=== PATIENT | female | born 1975 | race Caucasian/White ===

== ENCOUNTER 2018-03-14 08:56 | Inpatient (IN) ==
[2018-03-14] MEDS ORDERED: Dexamethasone 4 MG/ML VIAL ONE (09:01)
[2018-03-14] MEDS ORDERED: Lidocaine -MPF 2% 2 ML VIAL ONE (09:01)
[2018-03-14] MEDS ORDERED: Ondansetron 4 MG/2 ML VIAL ONE (09:01)
[2018-03-14] MEDS ORDERED: *HR* Succinylcholine 200 MG/10 ML VIAL IVP ONE (09:01)
[2018-03-14] MEDS ORDERED: *HR* Propofol 200 MG/20 ML VIAL IVP ONE (09:01)
[2018-03-14] MEDS ORDERED: *HR* FentaNYL (PF) 100 MCG/2 ML VIAL ONE (09:01)
--- NOTE | 2018-03-14 09:06 | Anesthesia Evaluation PreOp ---
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: Other (low back pain) Other Medical History: Renal (kidney stones), GERD, Other (obesity BMI=43.9, fibromyalgia, anxiety/depression) Anesthesia History: Past Anesthesia, Problems (PONV) Test: Negative (03/09/2018) Alcohol Use: none Drug use: none Medications and Allergies Acetaminophen [Tylenol] 1,000 mg PO Q6HR PRN 12/21/17 [History] Aspirin Enteric Coated [Aspirin EC] 81 mg PO DAILY 12/21/17 [History] BuPROPion XL (24 HR) [Wellbutrin XL] 150 mg PO DAILY 12/21/17 [History] Buspirone HCl [Buspar] 10 mg PO TID 12/21/17 [History] Cyclobenzaprine [Flexeril] 10 mg PO HS PRN 12/21/17 [History] Duloxetine HCl [Cymbalta] 60 mg PO DAILY 12/21/17 [History] Fluticasone Propionate Nasal [Flonase] 50 mcg NS DAILY 12/21/17 [History] Gabapentin [Neurontin] 800 mg PO TID 12/21/17 [History] HYDROcodone/Acet 10/325 mg [[place] 10-325 mg] 1 tab PO TID PRN 12/21/17 [History] Ibuprofen [Ibu] 800 mg PO TID PRN 12/21/17 [History] Ibuprofen [Motrin] 600 mg PO Q6HR PRN #60 tab 12/21/17 [Rx] Metoprolol Succinate [Toprol Xl] 100 mg PO HS 12/21/17 [History] Ranitidine HCl [Zantac 75] 150 mg PO DAILY 12/21/17 [History] Allergy/AdvReac Type Severity Reaction Status Date / Time cephalexin [From Keflex] Allergy Gastrointestinal Verified 03/09/18 13:19 Upset hydrochlorothiazide AdvReac Dizziness Verified 03/09/18 13:19 [From Zestoretic] lisinopril [From Zestoretic] AdvReac Dizziness Verified 03/09/18 13:19 - Meds/Allergy Pre-op Review Medications Reviewed: Yes Allergies Reviewed: Yes Beta Blockers on Current Med List: Yes If Beta Blockers taken, Date/Time (Last Dose taken): 03/13/2018 at 1900 Anesthesia Results - Labs Laboratory Tests 03/09/18 03/09/18 03/09/18 14:01 14:01 14:01 WBC Hgb Hct Plt Count PT 11.2 INR 1.0 APTT 34.5 Sodium 136 Potassium 4.0 BUN 12 Creatinine 0.76 Serum , Qual Negative 03/09/18 14:01 WBC 7.7 Hgb 13.3 Hct 40.3 Plt Count 190 PT INR APTT Sodium Potassium BUN Creatinine Serum , Qual - Imaging EKG: report reviewed (12/15/2017 SINUS RHYTHM) Anesthesia Exam O2 Sat Height 1.6 m Height 1.6 m Weight 112.491 kg Weight 112.491 kg O2 Sat by Pulse Oximetry 96 Vital Signs Temp Pulse Resp BP Pulse Ox 97.6 F 75 18 128/79 96 03/14/18 09:09 03/14/18 09:09 03/14/18 09:09 03/14/18 09:09 03/14/18 09:09 Height: 5'3'' Weight: 248 lbs NPO (# of Hours): 8 Pain Scale: 0 Pain Scale Used: Numeric (1 - 10) - HEENT Pupil (Motor): EOMI Mallampati: II Teeth: Normal, Missing Oral Opening: Greater than 3 - HAND COOPER HELPER LOC: Oriented HAND COOPER HELPER Motor: Normal RUE, Normal LUE, Normal RLE, Normal LLE, Normal Face HAND COOPER HELPER Sensory: Normal: RUE, LUE, RLE, LLE, Face - Cardiac Rhythm: Regular Murmur: None - Pulmonary Breath Sounds: bilateral Clear Respiratory Effort: Symmetrical Anesthesia Assess/Plan ASA Score: 3 Level of consciousness: Cooperative, Oriented, Tranquil Anesthetic Plan: General Monitoring Plan: Standard Monitors Recovery Plan: PACU
[2018-03-14] MEDS ORDERED: Clindamycin 900 MG/50 ML 900 MG/50 ML IV.SOLN IVPB ONE (09:13)
[2018-03-14] MEDS ORDERED: Ringers Solution, Lactated 1,000 ML IVC SCH (09:15)
[2018-03-14] MEDS ORDERED: Gentamicin 380 MG in 0.9 % Sodium Chloride 100 ML IVPB ONE (09:33)
[2018-03-14] MEDS ORDERED: Scopolamine Patch 1.5 MG PATCH.TD72 TD ONE (09:34)
[2018-03-14] MEDS ORDERED: Scopolamine Patch 1.5 MG PATCH.TD72 ONE (09:37)
--- NOTE | 2018-03-14 09:39 | History & Physical Report ---
Date of Encounter: 03/14/18 Time of Encounter: 09:38 24 Hour HP Update - Instructions Instructions: If the History and Physical is less than 30 days old and was completed prior to A.M. admission and or procedure and has NOT been updated on calendar day of procedure please complete this update prior to performing procedure. - Update Patient reports changes in Medical Condition: No Changes in examination, assessment, or condition: No Changes in Medication: No Preop tests/diagnostics Reviewed: Yes Surgery Remains Indicated: Yes Consent for Planned Operative Procedure(s) Verified: Yes - Pre-Operative Checklist Preoperative Checklist Indicated: Yes Prophylactic Antibiotic Ordered: Yes Home Medications Include Beta Heber: No Beta Heber Taken Today (Day of Surgery): No Beta Heber Taken Yesterday (Day Prior to Surgery): No Is VTE Prophylaxis Indicated?: Yes
[2018-03-14] MEDS ORDERED: Acetaminophen IV 1,000 MG/100 ML INFUS..BTL ONE (10:43)
[2018-03-14] MEDS ORDERED: *HR* Morphine 10 MG/ML VIAL ONE (10:57)
[2018-03-14] MEDS ORDERED: *HR* Vasopressin 20 UNIT/ML VIAL ONE (11:19)
[2018-03-14] MEDS ORDERED: *HR* Midazolam HCl 2 MG/2 ML VIAL ONE (11:26)
[2018-03-14] MEDS ORDERED: Albumin Human 5% 25.0 GM/500 ML VIAL ONE (12:16)
--- NOTE | 2018-03-14 13:37 | OB/GYN Procedure Note ---
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 - Diagnosis Date of procedure: 03/14/18 Pre-op diagnosis: Fibroid uterus, AUB, dysmenorrhea, pelvic pain Post-op diagnosis: same - Procedure Procedure: JOEL, b/l salpingectomy Surgeon: Perico Irwin Was there an dietitian assistant present: Yes [employer] Official: Suzie Blankenship Anesthesia Type: General Estimated blood loss (cc): 1,100 Fluids: crystalloid Procedure Complications: none Specimens collected: fibroid uterus, cervix and tubes Disposition: floor Findings: very large fibroid uterus, normal ovaries and tubes Narrative: The patient was prepped and draped in the usual sterile fashion. A pfannensteil incision was made into the abdomen down through the subcutaneous tissue, muscular fascia and peritoneum. Once inside the abdominal cavity, the fibroid uterus was noted and I placed a hand into the pelvic cavity to elevate the fibroid. Initially it was hard to elevate because part of the fibroid was wedged in the pelvis so I performed a Maylard incision on both sides after which I was able to elevate the uterus. A bladder retractor was placed. The uterus was grasped on the fundus with a double-toothed tenaculum with upward traction. The round ligaments on either side were identified and individually dissected and ligated with the Ligasure device. This allowed me to create a bladder flap by both blunt and sharp dissection. The fallopian tube and ovarian ligament were isolated through the broad ligament from the uterine body and ligated with the Ligasure divided as well. We noted multiple dilated blood vessels supplying the fibroid so there was a lot of suture ligation of bleeding vessels as soon as the procedure commenced. I called for 10 U of Vasopressin in 10cc of saline and injected into the muscle of the uterus. We noticed considerable lessening of the bleeding. I then skeletonized the uterine vessels on either side and carefully dissected the bladder flap anteriorly. Posteriorly, the peritoneum was dissected down toward the uterosacral ligaments. Ashanti clamps were then placed at each isthmic portion of the cervical body junction where the uterine arteries adjoined the uterus. These were clamped, ligated and divided using #0 Vicryl suture. The remainder of the uterus was then removed by the [id number] technique using #0 Vicryl on all major pedicles (I performed a supra cervical hysterectomy first before removing the cervix to allow for adequate visualization). With removal of the uterus and cervix, the vaginal cuff was closed in the usual manner. Hemostasis was then inspected and secured throughout the entire area. The ovaries were left in situ. The lap sponges were then removed and the retractor was removed. She was given methylene blue which was visible through the jordan into the bag. The patient tolerated the operation nicely. There were no complications associated with this surgical procedure to this point. The sponge count was correct times 2 at this time. The Jordan catheter was inspected and blue stained urine was noted. Having removed all instruments and packs, we then began closure of the abdomen. The fascia was closed with #0 PDS in a running continuous manner and the subcutaneous tissue was also closed with #3-0 vicryl in multiple layers after subcutaneous irrigation. The skin was closed with #4-0 vicryl. The patient tolerated the operation nicely and was then taken to the Recovery Room in good condition.
[2018-03-14] MEDS ORDERED: *HR* Promethazine 25 MG/ML VIAL IM ONE (13:46)
[2018-03-14] MEDS ORDERED: Ondansetron 4 MG/2 ML VIAL IVP ONE (13:47)
[2018-03-14] MEDS ORDERED: *HR* Morphine 2 MG/ML SYRINGE IVP PRN (13:48)
[2018-03-14] MEDS ORDERED: *HR* Promethazine 25 MG/ML VIAL IV ONE (14:15)
--- NOTE | 2018-03-14 14:17 | Anesthesia Evaluation Post Op ---
Date of Encounter: 03/14/18 Time of Encounter: 14:15 - Vital Signs Vital Signs: Selected Entries 03/14/18 14:00 Temperature 97.2 F L Pulse Rate 91 Respiratory Rate 12 Blood Pressure 122/77 O2 Sat by Pulse Oximetry 96 - Lungs Lungs: Clear Ascult./Percussion - Airway Airway: Non-obstructed - Cardiovascular Regular Rate - Mental Status Mental Status: Alert & Oriented, Answers Appropriately - Nausea Vomiting Nausea Vomiting: Responds to treatment with IV Meds - Hydration Hydration: NPO - Discharge PostOp Status: Transfer Patient to floor
[2018-03-14] MEDS ORDERED: *HR* OxyCODONE/APAP 5/325 TABLET PO PRN (15:09)
[2018-03-14] MEDS ORDERED: Naloxone 0.4 MG/ML INJ IVP PRN (15:09)
[2018-03-14] MEDS ORDERED: Ondansetron 4 MG/2 ML VIAL IVP PRN (15:09)
[2018-03-14 16:29] LABS: Basophils % 0.1 %; Hematocrit 31.9 % (35.3-44.9); Immature Granulocytes % 0.4 % (0-4); Lymphocytes # 0.7 K/mcL (0.6-4.6); Lymphocytes % 5.2 %; Mean Corpuscular HGB Conc 32.9 g/dL (31.6-35.5); Mean Corpuscular Hemoglobin 28.8 pg (28.0-33.3); Mean Corpuscular Volume 87.4 fL (83.0-100.0); Mean Platelet Volume 9.9 fL (9.4-12.4); Monocytes # 0.6 K/mcL (0.0-1.3); Monocytes % 4.1 %; Neutrophils # 12.2 K/mcL (1.6-8.9); Platelet Count 165 K/mcL (140-400); Red Blood Count 3.65 M/mcL (3.82-4.97); Segmented Neutrophils % 90.2 %
[2018-03-14 16:30] LABS: Hemoglobin 10.5 g/dL (11.5-15.4)
[2018-03-14] MEDS: Gabapentin 400 MG CAPSULE PO SCH ×2 (16:58→20:11)
[2018-03-14] MEDS: Ringers Solution, Lactated 1,000 ML IVC SCH (19:36)
[2018-03-14] MEDS: Ibuprofen 600 MG TABLET PO PRN (20:09)
[2018-03-14] MEDS ORDERED: Metoprolol XL (24 HR) Succ 50 MG TAB.ER.24H PO SCH (21:00)
[2018-03-15] MEDS: Ibuprofen 600 MG TABLET PO PRN ×2 (04:04→16:06)
[2018-03-15] MEDS: Ringers Solution, Lactated 1,000 ML IVC SCH (04:05)
[2018-03-15 06:52] LABS: Basophils % 0.1 %; Eosinophils % 0.1 %; Hematocrit 27.7 % (35.3-44.9); Hemoglobin 9.1 g/dL (11.5-15.4); Immature Granulocytes % 0.4 % (0-4); Lymphocytes # 1.6 K/mcL (0.6-4.6); Lymphocytes % 14.6 %; Mean Corpuscular HGB Conc 32.9 g/dL (31.6-35.5); Mean Corpuscular Hemoglobin 28.9 pg (28.0-33.3); Mean Corpuscular Volume 87.9 fL (83.0-100.0); Mean Platelet Volume 10.2 fL (9.4-12.4); Monocytes # 0.8 K/mcL (0.0-1.3); Monocytes % 6.7 %; Neutrophils # 8.7 K/mcL (1.6-8.9); Platelet Count 185 K/mcL (140-400); Red Blood Count 3.15 M/mcL (3.82-4.97); Red Cell Distribution Width 13.1 % (11.5-14.5); Segmented Neutrophils % 78.1 %
[2018-03-15] MEDS: Gabapentin 400 MG CAPSULE PO SCH (08:56)
[2018-03-15] MEDS ORDERED: Famotidine 20 MG TABLET PO SCH (09:00)
[2018-03-15] MEDS ORDERED: BuPROPion XL (24 HR) 150 MG TABLET PO SCH (09:00)
[2018-03-15 11:34] VITALS: BP 90/42
--- NOTE | 2018-03-15 16:08 | Discharge Summary ---
Date of Encounter: 03/15/18 Time of Encounter: 16:06 - Discharge Diagnosis (1) Status post hysterectomy Priority: Primary Status: Acute Comments: 42 y/o s/p JOEL for fibroid uterus, POD#1 patient is doing well, she is ambulating, tolerating PO, passing good urine output, pain is under control - Discharge Medications Home Medications: Aspirin Enteric Coated [Aspirin EC] 81 mg PO DAILY 12/21/17 [History] BuPROPion XL (24 HR) [Wellbutrin XL] 150 mg PO DAILY 12/21/17 [History] Buspirone HCl [Buspar] 10 mg PO TID 12/21/17 [History] Cyclobenzaprine [Flexeril] 10 mg PO HS PRN 12/21/17 [History] Duloxetine HCl [Cymbalta] 60 mg PO HS 12/21/17 [History] Fluticasone Propionate Nasal [Flonase] 50 mcg NS HS 12/21/17 [History] Gabapentin [Neurontin] 800 mg PO TID 12/21/17 [History] HYDROcodone/Acet 10/325 mg [[place] 10-325 mg] 1 tab PO TID PRN 12/21/17 [History] Metoprolol Succinate [Toprol Xl] 100 mg PO HS 12/21/17 [History] Ranitidine HCl [Zantac 75] 150 mg PO DAILY 12/21/17 [History] Furosemide [Lasix] 20 mg PO DAILY 03/14/18 [History] Ibuprofen [Ibu] 800 mg PO TID 03/14/18 [History] Allergies/Adverse Reactions: Allergy/AdvReac Type Severity Reaction Status Date / Time cephalexin [From Keflex] Allergy Gastrointestinal Verified 03/14/18 10:08 Upset hydrochlorothiazide AdvReac Dizziness Verified 03/14/18 10:08 [From Zestoretic] lisinopril [From Zestoretic] AdvReac Dizziness Verified 03/14/18 10:08 Data Procedures and tests throughout hospitalization: Laboratory Tests 03/14/18 03/15/18 16:18 06:30 WBC 13.5 H D 11.2 H RBC 3.65 L 3.15 L Hgb 10.5 L D 9.1 L Hct 31.9 L 27.7 L MCV 87.4 87.9 MCH 28.8 28.9 MCHC 32.9 32.9 RDW 13.0 13.1 Plt Count 165 185 MPV 9.9 10.2 Immature Gran % 0.4 0.4 Seg Neutrophils % 90.2 78.1 Lymphocytes % 5.2 14.6 Monocytes % 4.1 6.7 Eosinophils % 0.0 0.1 Basophils % 0.1 0.1 Neutrophils # 12.2 H 8.7 Lymphocytes # 0.7 1.6 Monocytes # 0.6 0.8 Eosinophils # 0.0 0.0 Basophils # 0.0 0.0 Labs on day of discharge: Labs from last 24 hours 03/15/18 03/14/18 06:30 16:18 WBC 11.2 H 13.5 H D RBC 3.15 L 3.65 L Hgb 9.1 L 10.5 L D Hct 27.7 L 31.9 L MCV 87.9 87.4 MCH 28.9 28.8 MCHC 32.9 32.9 RDW 13.1 13.0 Plt Count 185 165 MPV 10.2 9.9 Immature Gran % 0.4 0.4 Seg Neutrophils % 78.1 90.2 Lymphocytes % 14.6 5.2 Monocytes % 6.7 4.1 Eosinophils % 0.1 0.0 Basophils % 0.1 0.1 Neutrophils # 8.7 12.2 H Lymphocytes # 1.6 0.7 Monocytes # 0.8 0.6 Eosinophils # 0.0 0.0 Basophils # 0.0 0.0 Date of admission: 03/14/18 14:32 Primary care physician: Yossi Velazquez MD - Patient Status Disposition: Home, Self-Care Condition: Good Functional capacity at discharge: independent ambulation Overall status at discharge: patient is progressing back to baseline - Discharge Instructions Follow Up With: Yossi Velazquez MD [Primary Care Provider] - 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
== END 2018-03-15 16:55 | disposition home or self-care (01) | DRG 742 ==
LOC: SAMDAY 08:56 → 1NENUOBS 14:32
PROVIDERS: ADMIT Student in an Organized Health Care Education/Training Program; ATTEND Student in an Organized Health Care Education/Training Program